=== PATIENT | male | born 1965 | race Caucasian/White ===

== ENCOUNTER 2021-01-05 16:06 | Emergency (ER) | payer MEDICAID ==
[~2021-01-05] VITALS: Ht 182.9 cm; Wt 90.9 kg
[~2021-01-05 16:06] MED LIST: ALBU18HF2 INH; ALD25T PO; FOLI-43 PO; FURO-150 PO; GUAI600T45 PO; MULT-785 PO
[2021-01-05 17:45] VITALS: BP 142/85
[2021-01-05] MEDS ORDERED: LIDOcaine 1% W/epiNEPHrine 1:100,000 20ml vial SQ ONE (20:50)
[2021-01-05] MEDS ORDERED: CEPH-585 PO (21:09)
== END 2021-01-05 21:21 | disposition home or self-care (01) ==
LOC: ER 16:07
DX: M79.5 Residual foreign body in soft tissue (principal); K21.9 Gastro-esophageal reflux disease without esophagitis; G89.29 Other chronic pain; F41.9 Anxiety disorder, unspecified; F12.90 Cannabis use, unspecified, uncomplicated; Z72.89 Other problems related to lifestyle; Z56.0 Unemployment, unspecified; Z88.5 Allergy status to narcotic agent; Z88.8 Allergy status to other drugs, medicaments and biological substances; Z79.2 Long term (current) use of antibiotics; Z79.899 Other long term (current) drug therapy; W45.8XXA Other foreign body or object entering through skin, initial encounter; Y93.89 Activity, other specified; Y92.89 Other specified places as the place of occurrence of the external cause; Y99.8 Other external cause status
CPT/HCPCS: 99284